=== PATIENT | male | born 1970 | race African-American/Black ===

== ENCOUNTER → 2016-10-04 09:25 | Outpatient (CLI) | payer MEDICAID ==
[2015-11-01 08:22] VITALS: BMI 53.9
[~2016-10-04 09:25] MED LIST: CELEBREX200 MG PO; LASIX20 MG PO; NEURONTIN 300300 MG PO; PROAIR HFA8.5 GM INH; ULTRAM50 MG PO
== END | disposition home or self-care (01) ==
LOC: D.CT 10-02 11:30
DX: R51 Headache (principal)

== ENCOUNTER → 2016-11-12 10:46 | Outpatient (CLI) | payer MEDICAID ==
[2015-11-01 08:22] VITALS: BMI 53.9
== END | disposition home or self-care (01) ==
LOC: D.CT 10:46
DX: C82.95 Follicular lymphoma, unspecified, lymph nodes of inguinal region and lower limb (principal)

== ENCOUNTER 2016-12-21 11:37 | Observation (INO) | payer MEDICAID ==
[~2016-12-21] VITALS: Ht 175.3 cm; Wt 165.9 kg
--- NOTE | ~2016-12-21 | HEMODYNAMI ---
PATIENT:KAREN ESPINOZA JR MEDICAL RECORD: [id number] : 70 [facility] D[id number] ADMISSION DATE: 12/21/16 Generatedon:12/21/201615:14 Patient name: KAREN ESPINOZA Patient #: [id number] SSN: : 1970 Date of study: 12/21/2016 Page: Of Hemodynamic Procedure Report Patient Data Patient Demographics Procedure consent was obtained First Name: KAREN Gender: Male Last Name: OLGA Suffix: Patient #: [id number] : 1970 Age: 46 year(s) Accession #: Race: Black [id number] Additional ID: [id number] Contact details Address: [address] [place] [address] [id number] State: [place] City: [facility] Zip code: [address] Admission Admission Data Admission Date: 12/21/2016 Admission Time: 11:37 Room #: D.2118 Procedure Procedure Types Cath Procedure Diagnostic Procedure LHC LHC w/Coronaries Miscellaneous Procedures Moderate Sedation up to 30 minutes Procedure Description Procedure Date Procedure Date: 12/21/2016 Procedure Start Time: 14:46 Procedure End Time: 15:13 Procedure Staff Name Function Jeff Eid RT Scrub Richard Jerry RT Monitor Jericho Terrazas MD Performing Physician Grazyna Fontenot RN Nurse Procedure Data Cath Procedure Fluoroscopy Diagnostic fluoroscopy Total fluoroscopy Time: 5.4 time: 5.4 min min Diagnostic fluoroscopy Total fluoroscopy dose: 802 dose: 802 mGy mGy Contrast Material Contrast Material Type Amount (ml) Isovue 300 93 Entry Location Entry Primary Successful Side Size Upsize Upsize Entry Closure Velasquez ccessful Closure Location (Fr) 1 (Fr) 2 (Fr) Remarks Device Remarks Radial Right 6 Fr Mechanical artery Short Compression Femoral Right 6 Fr Exoseal artery Short Estimated blood loss: 10 ml Diagnostic catheters Device Type Used For End Catheter Placement Terumo 5Fr Gustine 110cm Procedure catheter Procedure Complications No complications Procedure Medications Medication Administration Route Dosage Oxygen NC 2 l/min Heparin Flush Bag added to field 2 bags (1000units/500ml NS) Lidocaine 2% added to field 20 Radial Cocktail added to field 1 syringe (Verapomil 2mg/Nitro 400mcg/Heparin 1500units) Versed I.V. 1 mg Fentanyl I.V. 50 mcg Versed I.V. 1 mg Fentanyl I.V. 50 mcg Radial Cocktail I.A. 1 syringe (Verapomil 2mg/Nitro 400mcg/Heparin 1500units) Fentanyl I.V. 50 mcg Fentanyl I.V. 50 mcg Hemodynamics Rest Heart Rate: 81 (bpm) Pressure Samples Time Site Value (mmHg) Purpose Heart Use Rate(bpm) 14:52 LV 164/3,33 Snapshot 85 Gradients Valve Time Site Site Mean SEP/DFP Peak To Heart Use 1 2 (mmHg) (sec/min) Peak Rate (mmHg) (bpm) Aortic 14:52 LV AO 85 Snapshots Pre Cath Intra NCS Post Cath Vital Signs Time Heart Resp SPO2 etCO2 [id number] NIBP (mmHg) Rhythm Pain Sedation Rate (ipm) (%) (mmHg) (mmHg) Status Level (bpm) 14:30:13 76 15 97 0 0 138/84(104) NSR 0 (11) 10(A) , No pain 14:34:50 80 16 96 0 0 139/81(103) NSR 0 (11) 10(A) , No pain 14:39:27 82 16 96 0 0 128/77(98) NSR 0 (11) 10(A) , No pain 14:43:59 82 20 96 0 0 129/78(100) NSR 0 (11) 10(A) , No pain 14:48:29 73 19 96 0 0 136/89(113) NSR 0 (11) 10(A) , No pain 14:53:16 77 16 95 0 0 118/63(90) NSR 0 (11) 10(A) , No pain 14:57:46 74 16 97 0 0 105/68(94) NSR 0 (11) 10(A) , No pain 15:02:11 77 16 96 0 0 123/73(92) NSR 0 (11) 10(A) , No pain 15:06:45 73 16 97 0 0 116/68(98) NSR 0 (11) 10(A) , No pain 15:11:14 72 11 97 0 0 125/72(90) NSR 0 (11) 10(A) , No pain Medications Time Medication Route Dose Verified Delivered Reason Notes Effectiveness by by 14:28:56 Oxygen NC 2 l/min Jericho Grazyna Per [facility] Jay Fontenot RN physician 14:29:03 Heparin Flush added 2 bags Jericho Jericho used for Bag to [place] Nini procedure (1000units/500ml field MD KIRKLAND NS) 14:29:11 Lidocaine 2% added 20ml Jericho Jericho used for to vial Nini [place] procedure field MD KIRKLAND 14:33:33 Radial Cocktail added 1 Jericho Jericho used for (Verapomil to syringe [place] procedure 2mg/Nitro field MD KIRKLAND 400mcg/Heparin 1500units) 14:42:22 Versed I.V. 1 mg Jericho Grazyna for sedation [facility] Jay Fontenot RN, MD 14:42:28 Fentanyl I.V. 50 mcg Jericho Reichecca for sedation [facility] Jay Fontenot RN, MD 14:45:40 Versed I.V. 1 mg Jericho Grazyna for sedation [facility] Jay Fontenot RN, MD 14:45:43 Fentanyl I.V. 50 mcg Jericho Grazyna for sedation [facility] Jay Fontenot RN, MD 14:49:58 Radial Cocktail I.A. 1 Jericho Jericho for (Verapomil syringe Nini Nini vasodilation 2mg/Vikki KIRKLAND MD 400mcg/Heparin 1500units) 14:52:11 Fentanyl I.V. 50 mcg Jericho Grazyna for sedation [facility] Jay Fontenot RN, MD 14:56:21 Fentanyl I.V. 50 mcg Jericho Grazyna for sedation [facility] Jay Fontenot RN, MD Procedure Log Time Note 13:53:19 ACC Patient presents with Unstable Angina CCS Anginal Class 3--Marked limitation of physical activity, angina occurs with ordinary activity.. 13:53:21 Diagnostic Cath status Urgent 13:53:23 Richard Jerry RT(R) sent for patient. Start room use. 13:53:26 Time tracking: Call back 13:53:31 Plan of Care:Hemodynamics will remain stable., Cardiac rhythm will remain stable., Comfort level will be maintained., Respiratory function will remain adequate., Patient/ family verbilizes understanding of procedure., Procedure tolerated without complication., Recovers from procedure without complications.. 14:26:20 Patient received from PCU to CCL 1 Alert and oriented. Tansferred to table in Supine position. 14:26:21 Warm blankets applied, and malia hugger turned on for patient comfort. 14:26:21 Correct patient and procedure confirmed by team. 14:26:22 Signed procedure consent form obtained from patient. 14:26:23 ECG and BP/O2 sat monitors applied to patient. 14:28:46 Vital chart was started 14:28:56 Oxygen 2 l/min NC was administered by Grazyna Fontenot RN; Per physician; 14:29:03 Heparin Flush Bag (1000units/500ml NS) 2 bags added to field was administered by Jericho Terrazas MD; used for procedure; 14:29:11 Lidocaine 2% 20ml vial added to field was administered by Jericho Terrazas MD; used for procedure; 14:33:33 Radial Cocktail (Verapomil 2mg/Nitro 400mcg/Heparin 1500units) 1 syringe added to field was administered by Jericho Terraazs MD; used for procedure; 14:38:04 Baseline sample Acquired. 14:38:08 Rhythm: sinus rhythm 14:38:09 Full Disclosure recording started 14:38:14 H&P Date Dictated: 12/21/2016 Within 30 days and on chart.. 14:38:15 Pre-procedure instructions explained to patient. 14:38:15 Pre-op teaching completed and patient verbalized understanding. 14:38:16 Family in waiting room. 14:38:19 Patient NPO since Midnight. 14:38:21 Is the patient allergic to Iodine/contrast media? No. 14:38:44 Is patient on blood thinner?No 14:38:45 Patient diabetic? Yes. 14:38:46 If diabetic: On Metformin? Yes 14:38:48 If on Metformin: Last Dose? 12/20/2016 14:38:51 Previous problem with sedation/anesthesia? No ? 14:38:53 Snore? Yes 14:38:54 Sleep apnea? Yes 14:38:55 Deviated septum? No 14:38:56 Opens mouth fully? Yes 14:38:57 Sticks out tongue? Yes 14:39:00 Airway obstruction? No ? 14:39:07 Dentures? No ? 14:39:10 Pre procedure: right dorsailis pedis pulse 1+ Palpable, but thready & weak; easily obliterated 14:39:15 Modified Gavin's test Ulnar < 7 seconds 14:39:16 Patient pain scale 0/10 ?. 14:39:19 IV patent on arrival in left forearm with 0.9% NaCl at [facility]. 14:39:22 Lab results completed and on chart. 14:39:24 Right Radial & Right Groin area was prepped with chlora-prep and draped in sterile fashion 14:39:26 Alarms reviewed by R. N. 14:39:26 Sharps counted by scrub and verified by R.N. 14:39:32 Use device set Radial Dx 14:39:34 Tegaderm 4 x 4 opened to sterile field. 14:39:35 Acist Manifold opened to sterile field. 14:39:36 Acist Hand Control opened to sterile field. 14:39:37 Acist Syringe opened to sterile field. 14:39:37 Medline Cath Pack opened to sterile field. 14:39:37 Bag Decanter opened to sterile field. 14:39:38 Terumo 6Fr Slender Glidesheath opened to sterile field. 14:39:38 St Ganga 260cm J .035 wire opened to sterile field. 14:39:39 MBrace Wrist Support opened to sterile field. 14:41:00 --------ALL STOP TIME OUT------ 14:41:01 Final Timeout: patient, procedure, and site verified with staff and physician. All members of the team are in agreement. 14:41:03 Right Radial & Right Groin site verified by team. 14:41:07 Physical assessment completed. ASA score P 2 - A patient with mild systemic disease as per Jericho Terrazas MD. 14:41:10 Sedation plan: IV Moderate Sedation Versed, Fentanyl 14:42:22 Versed 1 mg I.V. was administered by Grazyna Fontenot RN; for sedation; 14:42:28 Fentanyl 50 mcg I.V. was administered by Grazyna Fontenot RN; for sedation; 14:45:40 Versed 1 mg I.V. was administered by Grazyna Fontenot RN; for sedation; 14:45:43 Fentanyl 50 mcg I.V. was administered by Grazyna Fontenot RN; for sedation; 14:46:01 Procedure started. 14:46:14 Local anesthetic to right radial artery with Lidocaine 2% by Jericho Terrazas MD.INITIAL ACCESS ONLY 14:47:07 A 6 Fr Short sheath was inserted into the Right Radial artery 14:49:58 Radial Cocktail (Verapomil 2mg/Nitro 400mcg/Heparin 1500units) 1 syringe I.A. was administered by Jericho Terrazas MD; for vasodilation; 14:50:39 A Terumo 5Fr Gustine 110cm catheter was advanced over the wire and used for Procedure. 14:51:55 LV angiography performed. 14:51:56 LV gram done using CHANDLER 14:52:05 EF : 55 % 14:52:11 Fentanyl 50 mcg I.V. was administered by Grazyna Fontenot RN; for sedation; 14:53:02 LV hemodynamics recorded. 14:53:05 Injector settings: Ml/sec: 7, Volume: 15, 14:56:21 Fentanyl 50 mcg I.V. was administered by Grazyna Fontenot RN; for sedation; 14:57:00 Catheter exchanged over wire. 14:57:14 6 Fr XBLAD 3.5 guide catheter was inserted over the wire 14:57:14 Cordis 6FR XBLAD 3.5 guide catheter opened to sterile field. 14:57:15 Medtronic Launcher 6Fr AR 2.0 guide catheter opened to sterile field. 14:59:07 Guide Catheter removed. unable to cannulate vessel. 14:59:41 Local anesthetic to right femoral artery with Lidocaine 2% by Jericho Terrazas MD.ADDITIONAL ACCESS 14:59:58 A 6 Fr Short sheath was inserted into the Right Femoral artery 15:00:50 6 Fr XBLAD 3.5 guide catheter was inserted over the wire 15:01:32 LCA angiography performed. 15:02:32 Catheter removed. 15:03:07 6 Fr AR 2 guide catheter was inserted over the wire 15:04:29 RCA angiography performed. 15:04:31 Catheter removed. 15:04:44 Terumo TR Band Large opened to sterile field. 15:04:45 Cordis 6Fr Exoseal opened to sterile field. 15:04:59 Sheath removed intact; hemostasis achieved with Exoseal to the Right Femoral artery. 15:05:17 Procedure ended.(Physican Out) 15:05:22 Fluoroscopy time 05.40 minutes. 15:05:26 Fluoroscopy dose: 802 mGy 15:05:26 Flurop Dose total: 802 15:05:30 Contrast amount:Isovue 300 93ml. 15:05:32 Sharps counted by scrub and verified by R.N. 15:05:39 Sheath removed intact; hemostasis achieved with Mechanical Compression to the Right Radial artery. 15:05:44 TR band inflated with 12cc of air. 15:05:45 Insertion/operative site no bleeding no hematoma. 15:05:48 Post-op/insertion site Right Femoral artery dressed using a 4 x 4 and Tegaderm. 15:05:49 Post Procedure Pulses reassessed and unchanged 15:05:52 Post-procedure physical assessment completed. ASA score P 2 - A patient with mild systemic disease as per Jeff Eid RT(R). 15:05:55 Post procedure rhythm: unchanged. 15:05:58 Estimated blood loss: 10 ml 15:06:00 Post procedure instruction explained to patient.Patient verbalizes understanding. 15:06:00 Patient needs reinforcement of post procedure teaching. 15:06:17 Procedure type changed to Cath procedure, Diagnostic procedure, LHC, LHC w/Coronaries, Miscellaneous Procedures, Moderate Sedation up to 30 minutes 15:07:02 Procedure Complication : No complications 15:07:30 Terumo 6Fr [place] Sheath opened to sterile field. 15:07:44 Procedure and supply charges have been captured, reviewed, submitted and are correct. 15:13:48 Vital chart was stopped 15:13:48 See physician's report for complete and final results. 15:13:52 Report given to PCU. 15:13:54 Patient transfered to PCU with Bed. 15:13:57 Procedure ended. 15:13:57 Full Disclosure recording stopped 15:14:03 End room use (Document Last) Device Usage Item Name Manufacture Quantity Catalog Hospital Part Current Minimal Lot# / Number Charge Number Stock Stock Serial# Code Tegaderm 4 1 [id number] 706503 [id number] 5 x 4 Acist Acist 1 46367 286189 543405 095674 5 Mobivity Inc Acist Hand Acist 1 35689 165377 330003 297580 5 Control Medical Systems Inc Acist Acist 1 36739 274951 426020 793964 20 Syringe Medical Systems Inc Medline Cardinal 1 [id number] 615608 40556 901996 5 Cath Pack Health Bag Microtek 1 2001S [id number] 51582 220144 5 Decanter Medical Inc. Terumo 6Fr Terumo 1 [id number] 467104 110207 655386 [address] Ganga 1 188182 137262 137705 538315 30 260cm J .035 wire MBrace Advanced 1 140-0250-00 870622 77337 814098 5 Wrist Vascular Support Dynamics Terumo 5Fr Terumo 1 40-7069 562658 363573 966443 5 Gustine 110cm catheter Cordis 6FR Cardinal 1 [id number] 341996 026441 391746 10 XBLAD 3.5 Health guide catheter Medtronic Medtronic 1 [id number] 255214 36185 685446 1 Launcher 6Fr AR 2.0 guide catheter Terumo TR Terumo 1 [id number] 316859 785112 835023 40 Band Large Cordis 6Fr Cardinal 1 EX600 221885 759361 910243 10 Exoseal Health Terumo 6Fr Terumo 1 [id number] 497279 918121 103160 40 [place] Sheath Signature Audit [place] Stage Time Signature Unsigned Intra-Procedure 12/21/2016 Jeff Eid 3:14:26 PM RT(R) Signatures Monitor : Richard Jerry RT Signature : Date : Time : [facility] [address] [place] [address]
--- NOTE | 2016-12-21 11:49 | NUR ---
TRANSFER FROM ADMISSIONS BY W/C. OREINTED TO ROOM. CALL LIGHT IN REACH. WILL CONT. PLAN OF CARE.
[2016-12-21 12:03] VITALS: BP 152/83; Ht 175.3 cm; Wt 165.9 kg
[2016-12-21 12:26] VITALS: BP 157/83
--- NOTE | 2016-12-21 12:27 | NUR ---
IV ACCESS-22 GAUGE INSERTED IN RIGHT HAND FOR ACCESS. ALEXSANDRA MONTERROSO RN
--- NOTE | 2016-12-21 12:34 | NUR ---
IV STARTED BY ALEXSANDRA ARRIAGA. LINE IS PATENT.
[2016-12-21] MEDS ORDERED: HYDROCODONE-APA1 TAB PO (12:45)
[2016-12-21] MEDS ORDERED: LIPITOR20 MG PO (12:47)
[2016-12-21] MEDS ORDERED: LEXAPRO10 MG PO (12:49)
[2016-12-21] MEDS ORDERED: FUROSEMIDE20 MG PO (12:50)
[2016-12-21] MEDS ORDERED: GLUCOPHAGE500 MG PO (12:51)
[2016-12-21 13:55] LABS: BASOPHILS 0.5 % (0-2); EOSINOPHILS 6.3 % (0-7); HEMATOCRIT 40.9 % (42.0-54.0); HEMOGLOBIN 13.1 g/dL (13.5-17.5); IMMATURE GRANULOCYTES 0.5 % (0-5); LYMPHOCYTES 47.6 % (15-50); MCH 26.7 pg (26.0-34.0); MCV 83.5 fL (80.0-100.0); MEAN PLATELET VOLUME 8.8 fL (7.4-10.4); MONOCYTES 7.6 % (2-11); NEUTROPHILS 37.5 % (40-80); PLATELET COUNT 320 10x3/uL (130-400); RDW 15.4 % (11.5-14.5); WBC 5.7 10x3/uL (4.8-10.8)
--- NOTE | 2016-12-21 14:07 | NUR ---
PRE-OPS GIVEN. TO RESIDENTIAL TREATMENT STAFF BY BED.
[2016-12-21 14:21] LABS: ALBUMIN 3.4 g/dL (3.4-5.0); ALKALINE PHOSPHATASE 97 U/L (46-116); ALT (SGPT) 57 U/L (10-68); BILIRUBIN - TOTAL 0.32 mg/dL (0.2-1.3); CALC OSMOLALITY 281 mosm/kg (275-300); CALCIUM 8.7 mg/dL (8.5-10.1); CARBON DIOXIDE 31.3 mmol/L (21.0-32.0); CHLORIDE - SERUM 105 mmol/L (98-107); CKMB 1.2 U/L (0.0-3.6); CREATINE KINASE 663 UL (21-232); GLUCOSE 132 mg/dL (74-106); POTASSIUM - SERUM 3.9 mmol/L (3.5-5.1); PROTEIN - SERUM 7.2 g/dL (6.4-8.2); SODIUM 141 mmol/L (136-145); UREA NITROGEN 11 mg/dL (7-18); eGFR NON AFRICAN AMERICAN 85 mL/min (90-120)
[2016-12-21 14:22] LABS: TROPONIN-I < 0.017 ng/mL (0.000-0.060)
--- NOTE | 2016-12-21 15:32 | NUR ---
BACK FROM WAVE GUIDE ASSEMBLER. VS WNL. RIGHT WRIST STABLE WITH TR BAND INTACT. RIGHT GROIN STABLE WITHOUT BLEEDING OR HEMATOMA NOTED. WILL MONITOR.
[2016-12-21 16:15] VITALS: BP 126/76
--- NOTE | 2016-12-21 17:13 | NUR ---
BED REST UP. GROIN STABLE.
--- NOTE | 2016-12-21 18:10 | NUR ---
TR BAND DCD WITHOUT BLEEDING OR HEMATOMA NOTED.
--- NOTE | 2016-12-21 20:05 | NUR ---
PT RESTING IN BEDSIDE CHAIR. ALERT/ORIENTED. WANTING TO GET UP TO BATHROOM, BUT ALSO DOES NOT AN IV POLE/FLUIDS IN THE WAY. SALINE LOCKED IV. ASSESSED RIGHT GROIN SITE, NO BLEEDIN BRUISING WITH DRESSING C/D/I. VOIDING TO TOILET. NO C/O CHEST PAIN, SHIFT ASSESSMENT COMPLEED.
[2016-12-21 20:10] LABS: CKMB 0.7 U/L (0.0-3.6); CREATINE KINASE 590 UL (21-232)
[2016-12-21 20:13] LABS: TROPONIN-I < 0.017 ng/mL (0.000-0.060)
[2016-12-21 21:42] VITALS: BP 190/99
[2016-12-22 00:56] VITALS: BP 140/90
[2016-12-22 03:03] LABS: BASOPHILS 0.3 % (0-2); EOSINOPHILS 6.6 % (0-7); HEMATOCRIT 39.6 % (42.0-54.0); HEMOGLOBIN 12.8 g/dL (13.5-17.5); IMMATURE GRANULOCYTES 0.3 % (0-5); LYMPHOCYTES 48.5 % (15-50); MCH 26.9 pg (26.0-34.0); MCHC 32.3 g/dL (31.0-37.0); MCV 83.4 fL (80.0-100.0); MEAN PLATELET VOLUME 8.9 fL (7.4-10.4); MONOCYTES 9.9 % (2-11); NEUTROPHILS 34.4 % (40-80); PLATELET COUNT 319 10x3/uL (130-400); RBC 4.75 10x6/uL (4.20-6.10); RDW 15.3 % (11.5-14.5); WBC 6.6 10x3/uL (4.8-10.8)
[2016-12-22 03:22] LABS: ALBUMIN 3.3 g/dL (3.4-5.0); ALKALINE PHOSPHATASE 102 U/L (46-116); ALT (SGPT) 53 U/L (10-68); BILIRUBIN - TOTAL 0.24 mg/dL (0.2-1.3); CALC OSMOLALITY 277 mosm/kg (275-300); CALCIUM 8.8 mg/dL (8.5-10.1); CARBON DIOXIDE 31.7 mmol/L (21.0-32.0); CHLORIDE - SERUM 103 mmol/L (98-107); CKMB 0.5 U/L (0.0-3.6); CREATINE KINASE 466 UL (21-232); CREATININE - SERUM 0.9 mg/dL (0.6-1.3); GLUCOSE 107 mg/dL (74-106); POTASSIUM - SERUM 3.7 mmol/L (3.5-5.1); SODIUM 140 mmol/L (136-145); UREA NITROGEN 11 mg/dL (7-18); eGFR NON AFRICAN AMERICAN > 90 mL/min (90-120)
[2016-12-22 03:24] LABS: TROPONIN-I < 0.017 ng/mL (0.000-0.060)
[2016-12-22 04:00] VITALS: BP 128/66
--- NOTE | 2016-12-22 07:30 | NUR ---
RESTING QUIETLY EYES CLOSED RESP UNLABORED NAD NOTED
[2016-12-22 09:30] VITALS: BP 147/82
--- NOTE | 2016-12-22 12:50 | NUR ---
REVIEWED DISCHARGE INSTRUCTIONS PT STATES UNDERSTANDING COPY GIVEN TO PT DCD SALINE LOCK TO RT HAND WITH IV CATHETER TIP INTACT NO REDNESS OR EDEMA NOTED TO SITE PT DISCHARGED HOME IN STABLE CONDITION WITH ALL PERSONAL BELONGINGS LEFT UNIT VIA W/C
--- NOTE | 2016-12-23 10:14 | CN ---
PATIENT NAME:KAREN ESPINOZA JR MEDICAL RECORD: [id number] : 70 LOCATION:D. D.2118 ADMIT DATE: 12/21/16 ACCOUNT: [id number] CONSULTING PHYSICIAN: LIZBETH NIXON MD REFERRING PHYSICIAN: JOAQUIN IYER DO DATE OF CONSULTATION: 12/21/2016 HISTORY OF PRESENT ILLNESS: A 46-year-old gentleman with known history of coronary artery disease, multiple risk factors including hypertension, hyperlipidemia, diabetes mellitus, obesity, presented with intermittent chest pain, typical and atypical features, had onset of ____ symptoms today. No acute ECG changes ____ consulted for the above. PAST MEDICAL HISTORY: 1. History of hypertension. 2. Diabetes mellitus. 3. Obstructive sleep apnea. 4. Osteoarthritis. 5. Anxiety. 6. Peripheral neuropathy. MEDICATIONS: Lasix 20 mg q. day, Ultram 50 mg q.6 hours p.r.n., [place] 10/325 mg one b.i.d. p.r.n., Neurontin 600 mg t.i.d., Lexapro 10 mg q. day, Celebrex 200 mg q. day, and atorvastatin 20 mg q. day. SOCIAL HISTORY: Lives here in [place]. He is a nonsmoker. No set exercise program. He is able to take care of his ADLs. No illicit drugs. REVIEW OF SYSTEMS: The patient reports easy bruising but reports no swollen glands. The patient reports no fever, no night sweats, no significant weight gain, no significant weight loss. No significant exercise tolerance. The patient reports no dry eyes, no irritation, no vision change. Patient reports no difficulty hearing and no ear pain. Patient reports no frequent nose bleeds or nose and sinus problems. Patient reports on arm pain on exertion. No shortness of breath while lying down. No history of heart murmur. Patient reports no cough, no wheezing or coughing up blood. Patient reports no abdominal pain, no vomiting. Normal appetite. No diarrhea and not vomiting blood. No nausea and no constipation. Patient reports no incontinence. No difficulty urinating. No hematuria. No increased frequency. Patient reports no muscle aches. No weakness, no arthralgias, no back pain. No swelling of the extremities. Patient reports no abnormal mole, no jaundice, no rashes. Reports no loss of consciousness. No weakness and no numbness. No seizures, dizziness, or headaches. The patient reports no depression, no sleep disturbance, feeling safe in a relationship and no alcohol abuse. Patient reports on fatigue. Reports no runny nose or sinus pressure. No itching, no hives, and no frequent sneezing. PHYSICAL EXAMINATION: GENERAL: Pleasant gentleman who appears stated age. VITAL SIGNS: Blood pressure 137/83, pulse 72 and regular. HEENT: Normocephalic and atraumatic. NECK: No JVD or bruit. HEART: Regular. LUNGS: Harrington clear. ABDOMEN: Soft and nontender. CONSULT REPORT [id number] KAREN ESPINOZA JR EXTREMITIES: Pulse 2+ and equal. There is no edema. NEUROLOGIC: Grossly intact. DIAGNOSTIC DATA: ECG without acute change. IMPRESSION: Acute coronary syndrome. PLAN: Diagnostic angiography, intervention based on the above. TRANSINT:[id number] Voice Confirmation ID: [id number] DOCUMENT ID: [id number] LIZBETH NIXON MD at 1014 CC: [id number] DICTATION DATE: 12/21/16 1329 BLOCK PRESS OPERATOR: 12/21/161 DIS IN 12/22/16 [facility] [address] [place] [address]
--- NOTE | 2016-12-23 10:14 | OP ---
PATIENT NAME: KAREN ESPINOZA JR MEDICAL RECORD: [id number] :70 LOCATION:D.M2 D.2118 ADMISSION DATE:12/21/16 SURGEON: LIZBETH NIXON MD DATE OF OPERATION: 12/21/2016 PROCEDURE: Left heart catheterization, selective coronary angiography, right radial and right femoral approach. CATHETERS: A 5-Uzbek sheath, XB LAD catheter, hockey stick catheter. The procedure was well tolerated. The patient returned to macedo, sheath removed. ExoSeal device placed as well as TR band on the wrist. FINDINGS: Left ventriculography in 30-degree CHANDLER view: Normal wall motion, normal systolic function. CORONARY ANATOMY: Left main: Left main is free of disease. LAD: Free of disease in the diagonal system. CIRCUMFLEX: Free of disease in the marginal system. RIGHT CORONARY ARTERY: Dominant artery, gives rise to PDA, free of disease. IMPRESSION: Normal systolic function. Normal coronary anatomy. TRANSINT:[id number] Voice Confirmation ID: [id number] DOCUMENT ID: [id number] LIZBETH NIXON MD at 1014 CC: [id number] DICTATION DATE: 12/21/16 1512 [facility]: 12/21/16 2323 DIS IN 12/22/16 [facility] [address] [place] [address]
== END 2016-12-22 12:50 | disposition home or self-care (01) ==
LOC: D.M2 11:37 → OBSVTIME 23:34 → D.M2 12-22 12:50
PROVIDERS: ADMIT Family Medicine
DX: R07.9 Chest pain, unspecified (principal); I25.10 Atherosclerotic heart disease of native coronary artery without angina pectoris; E78.5 Hyperlipidemia, unspecified; E11.42 Type 2 diabetes mellitus with diabetic polyneuropathy; E66.9 Obesity, unspecified; I10 Essential (primary) hypertension; G47.33 Obstructive sleep apnea (adult) (pediatric); F41.9 Anxiety disorder, unspecified; Z68.43 Body mass index [BMI] 50.0-59.9, adult; Z72.0 Tobacco use

== ENCOUNTER → 2017-03-08 12:46 | Outpatient (CLI) | payer MEDICAID ==
[2016-12-21 12:03] VITALS: BMI 52.4
[~2017-03-08 12:46] MED LIST changes: +FUROSEMIDE20 MG PO; +GLUCOPHAGE500 MG PO; +HYDROCODONE-APA1 TAB PO; +LEXAPRO10 MG PO; +LIPITOR20 MG PO
== END | disposition home or self-care (01) ==
LOC: D.CT 12:46
DX: R22.2 Localized swelling, mass and lump, trunk (principal)

== ENCOUNTER → 2017-04-02 18:43 | Outpatient (CLI) | payer MEDICAID ==
[2016-12-21 12:03] VITALS: BMI 52.4
== END | disposition home or self-care (01) ==
LOC: D.LABREF 18:43
DX: R31.9 Hematuria, unspecified (principal)

== ENCOUNTER 2017-05-09 06:26 | Day surgery (SDC) | payer MEDICAID ==
[~2017-05-09] VITALS: Ht 177.8 cm; Wt 154.2 kg
[~2017-05-09 06:26] MED LIST changes: +K-TAB10 MEQ PO; +LIDODERM 5 %1 PATCH TRANSDERM; +PROZAC20 MG PO; +WELLBUTRIN SR150 MG PO
[2017-05-09 08:16] VITALS: BP 116/65; Ht 177.8 cm; Wt 154.2 kg
== END 2017-05-09 12:50 | disposition home or self-care (01) ==
LOC: D.OPS 06:26 → D.PAN 10:10 → D.OPS 10:10 → D.PAN 10:30 → D.OPS 12:50
DX: R31.9 Hematuria, unspecified (principal); J45.909 Unspecified asthma, uncomplicated; E11.9 Type 2 diabetes mellitus without complications; E66.01 Morbid (severe) obesity due to excess calories; Z68.42 Body mass index [BMI] 45.0-49.9, adult; Z01.812 Encounter for preprocedural laboratory examination

== ENCOUNTER 2017-06-04 05:04 | Day surgery (SDC) | payer MEDICAID ==
[~2017-06-04 05:04] MED LIST changes: +FLOMAX0.4 MG PO; +PROSCAR5 MG PO
[2017-06-04 06:01] LABS: HEMATOCRIT 40.1 % (42.0-54.0); HEMOGLOBIN 12.7 g/dL (13.5-17.5); MCH 26.5 pg (26.0-34.0); MCHC 31.7 g/dL (31.0-37.0); MCV 83.7 fL (80.0-100.0); MEAN PLATELET VOLUME 9.1 fL (7.4-10.4); RBC 4.79 10x6/uL (4.20-6.10); WBC 5.4 10x3/uL (4.8-10.8)
[2017-06-04 06:14] LABS: CALC OSMOLALITY 277 mosm/kg (275-300); CALCIUM 8.7 mg/dL (8.5-10.1); CARBON DIOXIDE 30.5 mmol/L (21.0-32.0); CHLORIDE - SERUM 102 mmol/L (98-107); GLUCOSE 101 mg/dL (74-106); SODIUM 140 mmol/L (136-145); UREA NITROGEN 11 mg/dL (7-18); eGFR NON AFRICAN AMERICAN 85 mL/min (90-120)
[2017-06-04 06:25] VITALS: BP 120/70; BMI 49.6
[2017-06-04] MEDS ORDERED: PERCOCET 7.5/321 TAB PO (08:11)
[2017-06-04] MEDS ORDERED: DURICEF500 MG PO (08:11)
--- NOTE | 2017-06-04 09:58 | NUR ---
IV DC WITH CATHER TIP INTACT
--- NOTE | 2017-06-04 12:36 | OP ---
PATIENT NAME: KAREN ESPINOZA JR MEDICAL RECORD: [id number] :70 LOCATION:[facility] ADMISSION DATE: SURGEON: KIMBERLYN KELLER DO DATE OF OPERATION: 06/04/2017 PROCEDURE PERFORMED: Left endoscopic carpal tunnel release. PREOPERATIVE DIAGNOSIS: Left carpal tunnel syndrome. POSTOPERATIVE DIAGNOSIS: Left carpal tunnel syndrome. INDICATIONS: Mr. Espinoza is a 46-year-old right-hand dominant male, who presented to my office, being referred for carpal tunnel syndrome. He had had a nerve conduction test, which revealed left carpal tunnel syndrome. He had numbness and weakness in that left hand he said and pain that would shoot into his first 3 fingers that wake him up at night. He was tired of dealing with the pain. It even shoot up his forearm to his elbow at times. The nerve conduction study was ordered and revealed a carpal tunnel syndrome, severe. He was referred to my office. He was informed of the risks and benefits of the procedure and chose to proceed forward with the procedure. DESCRIPTION OF PROCEDURE: The patient was taken to the operative suite, laid in supine position, given general anesthetic and LMA was placed. A tourniquet was placed above the elbow and left arm was prepped and draped just proximal to the elbow. Time-out was performed and everyone was in agreeance with left carpal tunnel endoscopic release was the correct procedure, he is a correct patient, and the left was the correct side. He was given Ancef prior to the incision. Once this was done, the left arm was exsanguinated with an Esmarch to the elbow. The tourniquet was inflated to 250 mmHg. The incision then was made at the proximal wrist crease just over the palmaris longus tendon, and the skin was incised, and then blunt dissection was made with a Ragnell down to the carpal tunnel itself. The proximal forearm fascia was released. At this point, with scissors and pickup and then the carpal tunnel was entered with the dilators, dilated up and then the sheath was placed into the carpal tunnel. The camera was then entered into the carpal tunnel itself and the transverse carpal ligament was seen and only transverse carpal ligament. The tunnel was seen and then the probe was used on the transverse carpal ligament and then the rasp cleaned off the transverse carpal ligament to ensure that that was all that was there. The knife was then entered and in a retrograde fashion, the transverse carpal ligament was cut with a knife. Once this was done, the camera was removed seeing fat herniated into the carpal tunnel and the muscle belly just above the transverse carpal ligament. The camera and sheath was removed and the larger end of the Ragnell was used to lift up on the skin and the very proximal portion was released with scissors and pickup. Then, the carpal tunnel was viewed visually with loupe magnification and the transverse carpal ligament was seen to be completely severed and there was plenty of room in the carpal tunnel. Any bands that were noted were released then with scissors under direct visualization. Once this was done, the tourniquet was let down at 17 minutes and pressure was held at the site. An 8 mL of 0.25% Marcaine with epinephrine was injected around the site and 2 single simple interrupted sutures were made in the incision with 5-0 Monocryl closing it and then a Steri-Strip was placed over Adaptic, small 4 x 4 was cut and a Tegaderm was placed over that and then Kerlix and Coban was lightly wrapped over the hand. The patient was awakened and in stable condition taken to recovery. Blood loss was minimal. OPERATIVE REPORT [id number] KAREN ESPINOZA JR TRANSINT:[id number] Voice Confirmation ID: [id number] DOCUMENT ID: [id number] KIMBERLYN KELLER DO at 1236 CC: [id number] DICTATION DATE: 06/04/17 0808 EGG SETTER: 06/04/[address] [facility] 06/04/17 [facility] [address] [place] [address]
== END 2017-06-04 10:00 | disposition home or self-care (01) ==
LOC: D.OPS 05:04 → D.PAN 07:30 → D.OPS 10:00 → D.PAN 14:00 → D.OPS 14:00
PROVIDERS: Anesthesiology
DX: G56.02 Carpal tunnel syndrome, left upper limb (principal); J45.909 Unspecified asthma, uncomplicated; E11.9 Type 2 diabetes mellitus without complications; G47.30 Sleep apnea, unspecified; E66.01 Morbid (severe) obesity due to excess calories; Z68.42 Body mass index [BMI] 45.0-49.9, adult; Z01.812 Encounter for preprocedural laboratory examination

== ENCOUNTER 2017-07-29 11:03 | Emergency (ER) | payer MEDICAID ==
[~2017-07-29 11:03] MED LIST changes: +DURICEF500 MG PO; +PERCOCET 7.5/321 TAB PO
== END 2017-07-29 14:47 | disposition home or self-care (01) ==
LOC: D.ER 11:03
DX: R13.10 Dysphagia, unspecified (principal); J35.2 Hypertrophy of adenoids; E11.9 Type 2 diabetes mellitus without complications; Z85.72 Personal history of non-Hodgkin lymphomas

== ENCOUNTER → 2017-12-11 10:38 | Outpatient (CLI) | payer MEDICAID | END | disposition home or self-care (01) | LOC: D.CT 10:38 | DX: R93.8 Abnormal findings on diagnostic imaging of other specified body structures (principal) ==

== ENCOUNTER 2018-02-12 11:28 | Emergency (ER) | payer MEDICAID ==
[~2018-02-12] VITALS: Ht 177.8 cm; Wt 159.1 kg
[2018-02-12 11:32] VITALS: Ht 177.8 cm; Wt 159.1 kg
[2018-02-12] MEDS ORDERED: VOLTAREN75 MG PO (14:18)
[2018-02-12] MEDS ORDERED: BACTRIM DS TABL1 TAB PO (14:18)
[2018-02-12] MEDS ORDERED: KEFLEX500 MG PO (14:18)
[2018-02-12 14:54] VITALS: BP 135/89
== END 2018-02-12 14:58 | disposition home or self-care (01) ==
LOC: D.ER 11:28
DX: S81.011A Laceration without foreign body, right knee, initial encounter (principal); W26.0XXA Contact with knife, initial encounter; Y93.89 Activity, other specified; Y92.019 Unspecified place in single-family (private) house as the place of occurrence of the external cause; S81.031A Puncture wound without foreign body, right knee, initial encounter

== ENCOUNTER → 2019-02-24 09:08 | Outpatient (CLI) | payer MEDICAID ==
[2018-02-12 11:32] VITALS: BMI 50.3
[~2019-02-24 09:08] MED LIST changes: +BACTRIM DS TABL1 TAB PO; +KEFLEX500 MG PO; +VOLTAREN75 MG PO
== END | disposition home or self-care (01) ==
LOC: D.CT 09:08 → D.RAD 10:30 → D.CT 16:00
PROVIDERS: ATTEND Family Medicine
DX: R13.10 Dysphagia, unspecified (principal)

== ENCOUNTER 2019-05-18 08:04 | Day surgery (SDC) | payer MEDICAID ==
[~2019-05-18] VITALS: Ht 177.8 cm; Wt 172.7 kg
[2019-05-18 08:26] LABS: CALC OSMOLALITY 277 mosm/kg (275-300); CALCIUM 8.6 mg/dL (8.5-10.1); CHLORIDE - SERUM 102 mmol/L (98-107); GLUCOSE 107 mg/dL (74-106); SODIUM 140 mmol/L (136-145); UREA NITROGEN 10 mg/dL (7-18); eGFR NON AFRICAN AMERICAN 85 mL/min (90-120)
[2019-05-18 08:28] LABS: HEMATOCRIT 42.7 % (42.0-54.0); HEMOGLOBIN 13.7 g/dL (13.5-17.5); MCH 26.8 pg (26.0-34.0); MCHC 32.1 g/dL (31.0-37.0); MCV 83.4 fL (80.0-100.0); MEAN PLATELET VOLUME 8.8 fL (7.4-10.4); RBC 5.12 10x6/uL (4.20-6.10); RDW 15.3 % (11.5-14.5); WBC 7.5 10x3/uL (4.8-10.8)
[2019-05-18 08:41] VITALS: BP 149/91; Ht 177.8 cm; Wt 172.7 kg
--- NOTE | 2019-05-18 11:05 | NUR ---
1043 IV DC'D. CATHETER TIP INTACT. NO BLEEDING AT SITE. BANDAID APPLIED. PT HAS ALL PAPERS AND PRESCRIPTION. HE KNOWS TO FOLLOW UP WITH DR NGUYEN IN ONE MONTH AND TO EXPECT A CALL FROM DR DAY OFFICE.
--- NOTE | 2019-05-20 16:44 | OP ---
PATIENT NAME: KAREN ESPINOZA JR MEDICAL RECORD: [id number] :70 LOCATION:[facility] ADMISSION DATE: SURGEON: ALEJANDRA NGUYEN DO DATE OF OPERATION: 05/18/2019 PROCEDURE: EGD with biopsies. INDICATIONS FOR PROCEDURE: Dysphagia. SCOPE: Olympus video gastroscope. MEDICATIONS: Propofol 350 mg IV per anesthesia. ESTIMATED BLOOD LOSS: Minimal. COMPLICATIONS: None. FINDINGS: Informed consent was given. The patient was made comfortable with the above medication. After reaching an adequate level of sedation by slow IV push, the patient was placed on his left side. The endoscope was advanced under direct visualization through the mouth to the second portion of the duodenum. The entire esophagus appeared normal. Random cold forceps biopsies were taken from the mid esophagus to rule out the presence of eosinophils. At the GE junction, there were minor changes consistent with LA class A reflux-induced esophagitis. The endoscope was advanced beyond the GE junction into the stomach and retroflexed to view the cardia, which appeared normal. Throughout the fundus, body of the stomach, and antrum and prepyloric regions, there were scattered areas of gastritis characterized by erosions, superficial ulcerations, erythema, and granularity. The severity was mild. Random cold forceps biopsies were taken from the antrum and prepyloric region to submit for histopathology and to rule out the presence of H. pylori. The endoscope was advanced beyond the pylorus into the duodenum, which appeared normal to the second portion. The endoscope was withdrawn from the patient. The patient tolerated the procedure well and there were no complications. IMPRESSION: 1. LA class A reflux-induced esophagitis. 2. Mild gastritis in a patchy distribution with a few superficial ulcerations, which appear to be medication related. PLAN AND RECOMMENDATIONS: 1. Discharge home when recovery parameters are met. 2. Follow up biopsy specimen results. 3. GERD diet and reflux precautions. 4. Continue current medications. 5. We will add Zantac 150 mg daily to regimen for 60 days. 6. We will order a barium esophagram to evaluate the patient's dysphagia further. May need to consider modified barium swallow and/or esophageal manometry pending results and continued symptoms. 7. Follow up in GI clinic in 1 month to discuss symptoms further if still present. TRANSINT:[id number] Voice Confirmation ID: [id number] DOCUMENT ID: [id number] OPERATIVE REPORT [id number] KAREN ESPINOZA JR, NATHAN A DO at 1644 CC: [id number] DICTATION DATE: 05/18/19 0950 METAL TREATER: 05/18/19 1[address] [facility] 05/18/19 [facility] [address] [id number]
== END 2019-05-18 10:58 | disposition home or self-care (01) ==
LOC: D.OPS 08:04
PROVIDERS: Anesthesiology; ATTEND Internal Medicine Gastroenterology
DX: R13.10 Dysphagia, unspecified (principal); K21.0 Gastro-esophageal reflux disease with esophagitis; K29.00 Acute gastritis without bleeding

== ENCOUNTER → 2020-12-29 08:53 | Outpatient (CLI) | payer MEDICAID ==
[2019-05-18 08:41] VITALS: BMI 54.6
== END | disposition home or self-care (01) ==
LOC: D.CT 08:53
PROVIDERS: ATTEND Family Medicine
DX: R59.0 Localized enlarged lymph nodes (principal); M54.2 Cervicalgia

== ENCOUNTER 2021-02-07 23:35 | Emergency (ER) | payer MEDICAID ==
[~2021-02-07] VITALS: Ht 177.8 cm; Wt 177.3 kg
[2021-02-07 23:50] VITALS: Ht 177.8 cm; Wt 177.3 kg
[2021-02-08 00:35] LABS: BASOPHILS 5.7 % (0-2); HEMATOCRIT 40.7 % (42.0-54.0); HEMOGLOBIN 13.1 g/dL (13.5-17.5); LYMPHOCYTES 45.5 % (15-50); MCH 26.7 pg (26.0-34.0); MCHC 32.1 g/dL (31.0-37.0); MCV 83.1 fL (80.0-100.0); MEAN PLATELET VOLUME 7.2 fL (7.4-10.4); NEUTROPHILS 36.8 % (40-80); PLATELET COUNT 357 10x3/uL (130-400); RDW 15.7 % (11.5-14.5); WBC 9.8 10x3/uL (4.8-10.8)
[2021-02-08 00:44] LABS: CALC OSMOLALITY 279 mosm/kg (275-300); CALCIUM 8.4 mg/dL (8.5-10.1); CARBON DIOXIDE 28.1 mmol/L (21.0-32.0); CHLORIDE - SERUM 104 mmol/L (98-107); GLUCOSE 99 mg/dL (74-106); POTASSIUM - SERUM 3.6 mmol/L (3.5-5.1); SODIUM 140 mmol/L (136-145); UREA NITROGEN 14 mg/dL (7-18); eGFR NON AFRICAN AMERICAN 84 mL/min (90-120)
[2021-02-08 01:04] LABS: ALBUMIN 3.4 g/dL (3.4-5.0); ALKALINE PHOSPHATASE 74 U/L (30-120); ALT (SGPT) 33 U/L (10-68); BILIRUBIN - TOTAL 0.21 mg/dL (0.2-1.3); CKMB 0.7 U/L (0.0-3.6); CREATINE KINASE 306 UL (21-232); PRO BNP 10 pg/mL (0-125); PROTEIN - SERUM 7.3 g/dL (6.4-8.2)
[2021-02-08 01:05] LABS: TROPONIN-I < 0.017 ng/mL (0.000-0.060)
[2021-02-08] MEDS ORDERED: PROAIR HFA8.5 G1 INH (01:12)
[2021-02-08 02:01] VITALS: BP 143/85
== END 2021-02-08 02:01 | disposition home or self-care (01) ==
LOC: D.ER 23:35
PROVIDERS: Family Medicine
DX: J45.909 Unspecified asthma, uncomplicated (principal); F41.9 Anxiety disorder, unspecified; Z91.19 Patient's noncompliance with other medical treatment and regimen; E11.9 Type 2 diabetes mellitus without complications; K21.9 Gastro-esophageal reflux disease without esophagitis